=== PATIENT | male | born 1990 | race African-American/Black ===

== ENCOUNTER 2021-04-07 20:26 | Emergency (ER) | payer SELFPAY ==
[~2021-04-07] VITALS: Ht 182.9 cm; Wt 90.0 kg
[2021-04-07 21:41] VITALS: BP 142/87
[2021-04-07] MEDS ORDERED: HYDROcodone/APAP 5/325MG 1 TAB TABLET PO ONE (22:00)
[2021-04-07] MEDS ORDERED: LIDOCAINE 1% Multi-Dose 20 ML VIAL. INJ ONE (22:00)
[2021-04-07] MEDS ORDERED: SULF1TAB23 PO (22:26)
[2021-04-07] MEDS ORDERED: HYDR-2761 PO (22:26)
--- NOTE | 2021-04-07 22:28 | PHYS DOC ---
Past Medical History Past Medical History: No Pertinent History Past Surgical History: No Surgical History Smoking Status: Current Every Day Smoker Alcohol Use: None Drug Use: Marijuana General Adult EDM: Chief Complaint: ABSCESS HPI: HPI: Patient is a 30 year old male who presents to the ED today with right buttock abscess, symptoms began 3 days ago. Patient denies any fever. Reports another old abscess on the right elbow that is healing up. Review of Systems: Review of Systems: Constitutional: Denies fever or chills. [] [] Musculoskeletal: Denies back pain or joint pain. [] Integument: Reports right buttock abscess, right elbow abscess wound- Neurologic: Denies headache, focal weakness or sensory changes. [] Psychiatric: Denies depression or anxiety. [] Heart Score: C/O Chest Pain: N/A Risk Factors: Risk Factors: DM, Current or recent (<one month) smoker, HTN, HLP, family history of CAD, obesity. Risk Scores: Score 0 - 3: 2.5% MACE over next 6 weeks - Discharge Home Score 4 - 6: 20.3% MACE over next 6 weeks - Admit for Clinical Observation Score 7 - 10: 72.7% MACE over next 6 weeks - Early Invasive Strategies Current Medications: Current Medications Medications (Trade) Dose Ordered Sig/German Start Time Stop Time Status Last Admin Dose Admin Acetaminophen/ Hydrocodone Bitart (Lortab 5/325) 2 tab 1X ONCE 04/07/21 22:00 04/07/21 22:01 DC 04/07/21 21:35 2 TAB Lidocaine HCl (Lidocaine 1% 20ml Vial) 20 ml 1X ONCE 04/07/21 22:00 04/07/21 22:01 DC 04/07/21 21:35 20 ML Allergies: Allergies: Allergies Coded Allergies Type Severity Reaction Last Updated Verified No Known Drug Allergies 08/14/13 No Physical Exam: PE: Constitutional: Well developed, well nourished, no acute distress, non-toxic appearance. [] Skin: Right buttock crack with an indurated area roughly 4 x 4 cm, the area is fluctuant, tender to touch, warm, erythematous. Right elbow with a scabbed up old abscess. No signs of infection Back: No tenderness, no CVA tenderness. [] Extremities: No tenderness, no cyanosis, no clubbing, ROM intact, no edema. [] Neurologic: Alert and oriented X 3, normal motor function, normal sensory function, no focal deficits noted. [] Psychologic: Affect normal, judgement normal, mood normal. [] Current Patient Data: Vital Signs: Vital Signs Date Time Temp Pulse Resp B/P (MAP) Pulse Ox O2 Delivery O2 Flow Rate FiO2 04/07/21 21:41 92 20 142/87 (105) 97 Room Air 04/07/21 21:10 98.6 98.6 EKG: EKG: [] Radiology/Procedures: Radiology/Procedures: Indication: abscess right buttock Procedure: The patient was positioned appropriately. Local anesthesia was 1% of lidocaine. An incision was then made over the apex of the lesion with an 11 blade and moderate amount of bloody yellow purulent material was expressed. The drainage cavity was irrigated and covered with sterile gauze. The patients tetanus status updated as needed. The patient tolerated the procedure well. Complications: none.[] Course & Med Decision Making: Course & Med Decision Making Pertinent Labs and Imaging studies reviewed. (See chart for details) This is a 30-year-old male patient presenting to the ED today with an abscess on the right buttock that was drained by me as noted in procedures. He also has an old abscess on the right elbow. Discharged on Bactrim. Follow-up with PCP in 1 week. Tetanus updated. Pricilla Disclaimer: Pricilla Disclaimer: This electronic medical record was generated, in whole or in part, using a voice recognition dictation system. Departure Departure Impression: Primary Impression: Abscess of right buttock Disposition: HOME / SELF CARE / HOMELESS Condition: STABLE Referrals: NO PCP (PCP) follow up with your doctor or provided surgeon in 1-2 weeks AKBAR HIGGINBOTHAM MD follow up in 1-2 weeks Patient Instructions: Abscess, Care After Additional Instructions: You have an abscess to the right buttock that was drained in the emergency room. We highly recommend you continue applying warm compresses to the area twice a day. Take the prescribed pain medicine as needed and antibiotics until completed. Follow-up with your doctor in 1 week Scripts Hydrocodone Bit/Acetaminophen (HYDROCODONE-APAP 5-325 ) 1 Tab Tablet 1 TAB PO PRN Q6HRS PRN for PAIN, #14 TAB 0 Refills Prov: SHEKHAR WAYNE [employer] ADVISOR 2/15/22 Sulfamethoxazole/Trimethoprim (BACTRIM 400-80 MG TABLET) 1 Each Tablet 1 TAB PO BID for 10 Days, #20 TAB 0 Refills Prov: SHEKHAR WAYNE APRN 04/07/21 SHEKHAR WAYNE APRN Apr 07, 2021 22:28
[2021-04-07] MEDS ORDERED: DIPHTH,PERTUSS(ACELL),TET TOX 0.5 ML DISP.SYRIN. VAX IM ONE (23:00)
== END 2021-04-07 23:00 | disposition home or self-care (01) ==
LOC: ER 20:26
DX: L02.31 Cutaneous abscess of buttock (principal); F17.200 Nicotine dependence, unspecified, uncomplicated
CPT/HCPCS: 10060; 99283; J3490